=== PATIENT | female | born 1985 | race Caucasian/White ===

== ENCOUNTER 2016-09-30 01:54 | Emergency (ER) | payer SELFPAY ==
[2016-09-30] MEDS ORDERED: LIDOCAINE VIS-MYLANTA 30 ML UD PO ONE (02:07)
[2016-09-30] MEDS ORDERED: IPRATROPIUM/ALBUTEROL 3 ML VIAL NEB ONE (02:09)
[2016-09-30 03:02] VITALS: TEMP 97.6
--- NOTE | 2016-09-30 03:15 | RAD ---
EXAM DESCRIPTION: XR CHEST 2 VIEWS09/30/2016 3:06 AM CLINICAL HISTORY: 31 y/o , F, chest pain COMPARISON: None FINDINGS: The lungs are clear without focal consolidation or pleural effusion. The heart is normal in size. The mediastinal contours are normal in appearance. The thoracic spine is age appropriate. The shoulders are unremarkable. Limited evaluation of the upper abdomen demonstrates no gross abnormalities. IMPRESSION: No acute cardiopulmonary disease Electronically signed by: Torrey Bansal MD 09/30/2016 03:14
--- NOTE | 2016-09-30 03:38 | ED.PDOC ---
History of Present Illness - General Chief Complaint: Chest Pain/NH Stated Complaint: CHEST PAIN Time Seen by Provider: 09/30/16 02:06 Source: patient Exam Limitations: no limitations - History of Present Illness Initial Comments: Patient presents with chest pain for 6 hours. Is substernal with radiation to the back. She has had multiple previous episodes that have all gone away on their own. The pain is constant with no exacerbating nor alleviating factors. No associated symptoms. She says it is a burning and cramping in quality. Has hx of arrhythmia that was treated successfully with ablation therapy. No other complaints. She did try an albuterol nebulizer before coming in. HX of well controlled asthma with no hospitalizations, less than once per month rescue inhaler use, no nighttime awakenings, and one episode of needing therapeutic steroids more than one year ago. Timing/Duration: 4-6 hours Severity: mild, moderate Improving Factors: nothing Worsening Factors: nothing Associated Symptoms: denies symptoms Allergies/Adverse Reactions: Allergies Cephalosporins Allergy (Verified 09/22/14 08:35) Doxycycline Allergy (Verified 07/17/16 14:11) Penicillins Allergy (Verified 09/22/14 08:35) Home Medications: Ambulatory Orders Albuterol Inhaler [Ventolin Hfa Inhaler] 1 puff INH PRN 07/17/16 Albuterol Sulfate Nebs [Proventil Nebs] 2.5 mg INH PRN 07/17/16 Prednisone [Deltasone] 20 mg PO DAILY #4 tab 07/17/16 Review of Systems - Review of Systems Constitutional: States: no symptoms reported EENTM: States: no symptoms reported Respiratory: States: no symptoms reported Cardiology: States: no symptoms reported Gastrointestinal/Abdominal: States: no symptoms reported Genitourinary: States: no symptoms reported Musculoskeletal: States: no symptoms reported Skin: States: no symptoms reported Neurological: States: no symptoms reported Endocrine: States: no symptoms reported Hematologic/Lymphatic: States: no symptoms reported Past Medical History (General) - Patient Medical History Hx Asthma: Yes Hx Cardiac Disorders: Yes - ablation 2000 Hx Hypertension: No Surgical History: no surgical history - Vaccination History Hx Influenza Vaccination: No - Social History Hx Tobacco Use: Yes - Female History Patient is a Female of Child Bearing Age (10 -59 yrs old): Yes Patient : No Family Medical History - Family History Mother Family History: Unknown Living Status: Unknown Physical Exam - Physical Exam General Appearance: Alert Ears, Nose, Throat: normal ENT inspection Neck: non-tender Respiratory: other - expiratory wheezing in right upper field. Otherwise, CTAB Cardiovascular/Chest: regular rate, rhythm Gastrointestinal/Abdominal: normal bowel sounds, non tender, soft Back Exam: no CVA tenderness Extremity: normal inspection Neurologic: no motor/sensory deficits Progress - Progress Progress: 09/30/16 03:41 Duonebs x one. EKG read by me showed NSR with no ST changes nor T wave inversions. No LBBB. wbc 6.4 diff 34% neutrophils 53% lymphocytes troponin negative GI cocktail resolved the pain 09/30/16 03:42 blood smear sent to pathologist due to unusual differential Patient sent home with instructions on omeprazole and Maalox use. Departure - Departure Clinical Impression: Gastroesophageal reflux disease, Esophageal spasm Disposition: Discharge to Home or Self Care Condition: Good Departure Forms: ED Discharge - Pt. Copy, Patient Portal Self Enrollment Diet: low fat, low cholesterol Activity: increase activity as tolerated Home Medications: Ambulatory Orders Albuterol Inhaler [Ventolin Hfa Inhaler] 1 puff INH PRN 07/17/16 Albuterol Sulfate Nebs [Proventil Nebs] 2.5 mg INH PRN 07/17/16 Prednisone [Deltasone] 20 mg PO DAILY #4 tab 07/17/16 Additional Instructions: Take omeprazole (Priolosec) 20 mg tablet 30 minutes before the first meal of the day and 30 minutes before the last meal of the day. Use Maalox as directed on the bottle for symptom relief. Follow up with you primary care physician if symptoms persist or worsen.
[2016-09-30 04:51] VITALS: BP 110/76
[2016-09-30 04:55] VITALS: O2SAT 99
== END 2016-09-30 04:05 | disposition home or self-care (01) ==
LOC: ER 01:54
DX: K21.9 Gastro-esophageal reflux disease without esophagitis (principal); K22.4 Dyskinesia of esophagus; J45.909 Unspecified asthma, uncomplicated; Z79.899 Other long term (current) drug therapy; Z88.0 Allergy status to penicillin; Z88.3 Allergy status to other anti-infective agents
CPT/HCPCS: 71020; 80053; 82550; 82553; 83880; 84484; 84703; 85025; 93005; 94640; J7620